=== PATIENT | male | born 1975 | race Caucasian/White ===

== ENCOUNTER 2018-11-07 19:38 | Emergency (ER) | payer MEDICAID ==
[2018-11-07] MEDS: predniSONE 20 MG TAB PO (20:18)
== END 2018-11-07 21:11 | disposition home or self-care (01) ==
LOC: E/R 19:38
DX: G51.0 Bell's palsy (principal); I10 Essential (primary) hypertension; E11.9 Type 2 diabetes mellitus without complications
CPT/HCPCS: 99283; J7512